=== PATIENT | female | born 1960 | race Caucasian/White ===

== ENCOUNTER 2019-04-22 10:45 | Emergency (ER) | payer BC ==
[~2019-04-22] VITALS: Ht 167.6 cm; Wt 82.6 kg
[2019-04-22 10:47] VITALS: BP 129/79
== END 2019-04-22 12:34 | disposition home or self-care (01) ==
LOC: ED 12:28
DX: S80.12XA Contusion of left lower leg, initial encounter (principal); W01.0XXA Fall on same level from slipping, tripping and stumbling without subsequent striking against object, initial encounter; Y93.89 Activity, other specified; Y92.009 Unspecified place in unspecified non-institutional (private) residence as the place of occurrence of the external cause; Y99.8 Other external cause status
CPT/HCPCS: 99283